=== PATIENT | male | born 1995 | race African-American/Black ===

== ENCOUNTER 2024-11-15 17:58 | Emergency (ER) | payer OTHER ==
[~2024-11-15] VITALS: Ht 177.8 cm; Wt 100.0 kg
[2024-11-15 18:00] VITALS: TEMP 37; O2SAT 100
[2024-11-15] MEDS: ACETAMINOPHEN 325MG TABLET PO STA (21:10)
[2024-11-15] MEDS ORDERED: CLOT15CR27 TP (21:33)
[2024-11-15] MEDS ORDERED: NAPR-681 MT (21:33)
[2024-11-15] MEDS ORDERED: DOXY100T28 MT (21:33)
[2024-11-15 21:46] VITALS: BP 163/109; PULSE 88; RESP 12; O2SAT 98
== END 2024-11-15 21:53 | disposition home or self-care (01) ==
LOC: ER 17:58
DX: S90.415A Abrasion, left lesser toe(s), initial encounter (principal); L03.119 Cellulitis of unspecified part of limb; B35.3 Tinea pedis; R60.9 Edema, unspecified; X58.XXXA Exposure to other specified factors, initial encounter; Y93.89 Activity, other specified; Y92.89 Other specified places as the place of occurrence of the external cause; Y99.8 Other external cause status
CPT/HCPCS: 73630; 93970; 99284

== ENCOUNTER 2025-06-06 09:02 | Emergency (ER) | payer OTHER ==
[~2025-06-06] VITALS: Ht 185.4 cm; Wt 100.0 kg
[~2025-06-06 09:02] MED LIST: AMOX1TAB16 MT; CLOT15CR27 TP; DOXY100T28 MT; NAPR-681 MT; SILV20CR13 TP
[2025-06-06 09:14] VITALS: TEMP 36.9; O2SAT 100
[2025-06-06] MEDS ORDERED: BO1 TP (10:41)
[2025-06-06 12:00] VITALS: BP 122/87; PULSE 66; RESP 16; O2SAT 100
== END 2025-06-06 12:10 | disposition home or self-care (01) ==
LOC: ER 09:02
DX: M79.672 Pain in left foot (principal); L84 Corns and callosities; E11.9 Type 2 diabetes mellitus without complications; Z79.899 Other long term (current) drug therapy
CPT/HCPCS: 73620; 99283